=== PATIENT | male | born 1955 | race Caucasian/White ===

== ENCOUNTER 2018-02-26 22:21 | Inpatient (IN) | payer BC, OTHER ==
[~2018-02-26] VITALS: Ht 175.3 cm; Wt 79.4 kg
[2018-02-26 22:55] LABS: Basophils # (auto) 0 uL; Basophils % (auto) 0.2 % (0.0-2.0); Eosinophils # (auto) 0.5 uL; Hematocrit 44.7 % (41.0-53.0); Hemoglobin 15.1 g/dL (13.5-17.5); Lymphocytes # (auto) 1.8 uL; Lymphocytes % (auto) 22.7 % (10.0-50.0); Mean Corpuscular Hgb Conc. 33.7 g/dL (32.0-36.0); Mean Corpuscular Volume 88.9 fL (80.0-100.0); Monocytes # (auto) 0.6 uL; Monocytes % (auto) 7.3 % (0.0-12.0); Neutrophils # (auto) 4.9 uL; Neutrophils % (auto) 62.8 % (37.0-80.0); Platelet Count (auto) 209 10^3/uL (140-450); Red Blood Cells 5.03 10^6/uL (4.5-5.90); Red Cell Distribution Width 13.4 % (11.8-14.3); White Blood Cell 7.8 10^3/uL (4.4-10.8)
[2018-02-26 23:02] LABS: INR 0.98 (0.9-1.15); Partial Thromboplastin Time 28.9 sec (23.78-33.04); Prothrombin Time 10.5 sec (9.27-12.13)
[2018-02-26 23:06] LABS: Albumin 3.6 g/dL (3.4-5.0); BUN/Creatinine Ratio 15.2; Calcium 8.8 mg/dL (8.5-10.1); Magnesium 2.4 mg/dL (1.6-2.6); Potassium 3.8 mmol/L (3.5-5.1)
[2018-02-26 23:11] LABS: Bilirubin, Total 0.9 mg/dL (0.2-1.0); Total Protein 6.8 g/dL (6.4-8.2)
[2018-02-27] MEDS ORDERED: NITROGLYCERIN 0.4 MG SL TAB SL ONE (00:15)
[2018-02-27] MEDS ORDERED: ASPirin 81 mg TAB PO ONE (00:15)
[2018-02-27] MEDS ORDERED: MORPHINE SULFATE 8mg/ml INJ SDV IV PRN ×3 (00:15→05:45)
[2018-02-27] MEDS ORDERED: ONDANSETRON HCL 4 MG/2 ML VIAL IV PRN ×2 (00:15→05:45)
[2018-02-27 00:34] LABS: Urine Bacteria NONE SEEN /hpf (None Seen); Urine Blood Negative /uL (Negative); Urine Specific Gravity 1.008 (1.001-1.035); Urine WBC <1 /hpf (0 - 3)
[2018-02-27 00:50] LABS: Alcohol, Urine < 3.0 mg/dL (0-5); Amphetamine Screen, Urine NEGATIVE (NEGATIVE); Barbiturate Scree,Urine NEGATIVE (NEGATIVE); Benzodiazephine Screen, Urine NEGATIVE (NEGATIVE); Cannabinoid Screen, Urine NEGATIVE (NEGATIVE); Cocaine Screen, Urine NEGATIVE (NEGATIVE); Opiate Scree,Urine NEGATIVE (NEGATIVE); Phencyclidine Screen, Urine NEGATIVE (NEGATIVE)
[2018-02-27] MEDS ORDERED: cloNIDine HCL 0.1 MG TAB PO PRN (05:45)
[2018-02-27] MEDS ORDERED: NITROGLYCERIN 0.4 MG SL TAB SL PRN (05:45)
[2018-02-27] MEDS ORDERED: HYDROcodone-ACET 5/325MG TAB PO PRN (05:45)
[2018-02-27] MEDS ORDERED: ACETAMINOPHEN 325 MG TAB PO PRN (05:45)
[2018-02-27] MEDS ORDERED: TEMAZEPAM 15 MG CAP PO PRN (05:45)
[2018-02-27 08:16] LABS: Cholesterol 169 mg/dL (< 200); HDL Cholesterol 48 mg/dL (40-59); LDL Cholesterol 107 mg/dL (< 100); Triglycerides 105 mg/dL (< 150)
[2018-02-27] MEDS ORDERED: ASPirin 81 mg TAB PO SCH (10:00)
[2018-02-27] MEDS ORDERED: FAMOTIDINE 20 MG TAB PO SCH (10:00)
[2018-02-27] MEDS ORDERED: ENOXAPARIN SOD 40 MG/0.4 ML SYRINGE SC SCH (10:00)
[2018-02-27] MEDS ORDERED: amLODIPine BESYLATE 5 MG TAB PO ONE (15:00)
[2018-02-27 21:51] VITALS: BP 130/70
[2018-02-27] MEDS ORDERED: ATORVASTATIN 20 MG TAB PO SCH (22:00)
[2018-02-28] MEDS ORDERED: amLODIPine BESYLATE 5 MG TAB PO SCH (10:00)
== END 2018-02-27 21:54 | disposition short-term general hospital (02) | DRG 303 ==
LOC: ER 22:21 → EDBD 22:21 → TELE 22:22
PROVIDERS: ADMIT Nurse Practitioner; ATTEND Internal Medicine
DX: I25.10 Atherosclerotic heart disease of native coronary artery without angina pectoris (principal); I24.9 Acute ischemic heart disease, unspecified; G47.00 Insomnia, unspecified; I10 Essential (primary) hypertension; R00.1 Bradycardia, unspecified; Z88.8 Allergy status to other drugs, medicaments and biological substances
CPT/HCPCS: 36415; 71045; 80053; 80061; 80307; 81001; 83735; 83880; 84443; 84484; 85025; 85610; 85730; 93005; 93306; 96372

== ENCOUNTER 2023-08-09 17:23 | Inpatient (IN) | payer OTHER ==
[~2023-08-09] VITALS: Ht 177.8 cm; Wt 80.0 kg
[2023-08-09 18:52] LABS: Basophils # (auto) 0 10 ^3/uL (0-0.2); Basophils % (auto) 0.2 % (0.0-2.0); Eosinophils # (auto) 0.1 10 ^3/uL (0-0.8); Hematocrit 45.6 % (41.0-53.0); Hemoglobin 15.1 g/dL (13.5-17.5); Lymphocytes # (auto) 0.8 10 ^3/uL (0.4-5.4); Lymphocytes % (auto) 6.4 % (10.0-50.0); Mean Corpuscular Hemoglobin 29.5 pg (28.0-32.0); Mean Corpuscular Hgb Conc. 33.1 g/dL (32.0-36.0); Mean Corpuscular Volume 88.9 fL (80.0-100.0); Monocytes # (auto) 0.5 10 ^3/uL (0-1.3); Monocytes % (auto) 3.9 % (0.0-12.0); Neutrophils # (auto) 10.5 10 ^3/uL (1.6-8.6); Neutrophils % (auto) 88.5 % (37.0-80.0); Nucleated Red Blood Cells % 0.1 %; Red Blood Cells 5.13 10^6/uL (4.5-5.90); Red Cell Distribution Width 13.3 % (11.8-14.3); White Blood Cell 11.9 10^3/uL (4.4-10.8)
[2023-08-09] MEDS ORDERED: SODIUM CHLORIDE 0.9% 1,000 ML IV ONE (19:00)
[2023-08-09 19:07] LABS: INR 1.05 (0.9-1.15); Partial Thromboplastin Time 25.6 SEC (24.5-34.5)
[2023-08-09 19:19] LABS: Alanine Aminotransferase 26 U/L (7-40); Albumin 4.5 g/dL (3.2-4.8); Alkaline Phosphatase 65 U/L (46-116); Anion Gap 6 (5-15); Aspartate Aminotransferase 23 U/L (13-40); Bilirubin, Total 1.4 mg/dL (0.2-1.0); Blood Urea Nitrogen 19 mg/dL (9-23); Calcium 9.3 mg/dL (8.7-10.4); Carbon Dioxide 27 mmol/L (20-30); Chloride 105 mmol/L (98-107); Glucose 107 mg/dL (74-106); Lipase 43 U/L (12-53); Potassium 4.6 mmol/L (3.5-5.1); Sodium 138 mmol/L (136-145); Total Protein 6.6 g/dL (5.7-8.2)
[2023-08-09] MEDS ORDERED: ASPirin 325 MG TAB PO ONE (19:45)
[2023-08-09] MEDS ORDERED: ONDANSETRON HCL 4 MG/2 ML VIAL IV ONE (23:00)
[2023-08-09] MEDS ORDERED: MORPHINE SULFATE INJ 2 MG/ml SYRG IV ONE (23:00)
[2023-08-10] MEDS ORDERED: HYDROcodone-ACET 5/325MG TAB PO PRN (01:00)
[2023-08-10] MEDS ORDERED: DOCUSATE SOD 100 MG CAP PO PRN (01:00)
[2023-08-10] MEDS ORDERED: ONDANSETRON HCL 4 MG/2 ML VIAL IV PRN (01:00)
[2023-08-10] MEDS ORDERED: ACETAMINOPHEN 325 MG TAB PO PRN (01:00)
[2023-08-10] MEDS ORDERED: MORPHINE SULFATE INJ 2 MG/ml SYRG IV PRN (01:00)
[2023-08-10] MEDS ORDERED: SODIUM CHLORIDE 0.9% 1,000 ML IV SCH (01:00)
[2023-08-10 01:45] VITALS: PULSE 60; RESP 16; O2SAT 97
[2023-08-10 07:38] LABS: Alanine Aminotransferase 18 U/L (7-40); Albumin 3.5 g/dL (3.2-4.8); Alkaline Phosphatase 51 U/L (46-116); Anion Gap 6 (5-15); Aspartate Aminotransferase 21 U/L (13-40); BUN/Creatinine Ratio 11.7 (10.0-20.0); Bilirubin, Total 1.6 mg/dL (0.2-1.0); Blood Urea Nitrogen 13 mg/dL (9-23); Calcium 7.8 mg/dL (8.5-10.1); Carbon Dioxide 25 mmol/L (20-30); Chloride 108 mmol/L (98-107); Glucose 87 mg/dL (74-106); Potassium 4.6 mmol/L (3.5-5.1); Sodium 139 mmol/L (136-145); Total Protein 5.4 g/dL (5.7-8.2)
[2023-08-10 07:41] LABS: Basophils # (auto) 0 10 ^3/uL (0-0.2); Basophils % (auto) 0.1 % (0.0-2.0); Eosinophils # (auto) 0.1 10 ^3/uL (0-0.8); Eosinophils % (auto) 0.8 % (0.0-7.0); Hemoglobin 14.8 g/dL (13.5-17.5); Lymphocytes # (auto) 0.9 10 ^3/uL (0.4-5.4); Lymphocytes % (auto) 10.3 % (10.0-50.0); Mean Corpuscular Hemoglobin 29.9 pg (28.0-32.0); Mean Corpuscular Hgb Conc. 33.6 g/dL (32.0-36.0); Mean Corpuscular Volume 89.2 fL (80.0-100.0); Monocytes # (auto) 0.9 10 ^3/uL (0-1.3); Monocytes % (auto) 10.2 % (0.0-12.0); Neutrophils % (auto) 78.6 % (37.0-80.0); Red Blood Cells 4.93 10^6/uL (4.5-5.90); Red Cell Distribution Width 13.3 % (11.8-14.3)
[2023-08-10] MEDS ORDERED: MANNITOL FTV 25% 12.5 GM/50 ML 50 ML IV ONE (13:00)
[2023-08-10] MEDS ORDERED: TAMSULOSIN HYDROCHLORIDE 0.4 MG CAP PO ONE (13:00)
[2023-08-10] MEDS: ASPirin 81 mg TAB PO SCH (15:54)
[2023-08-10 16:28] VITALS: PULSE 53; RESP 16; O2SAT 97
[2023-08-10 17:18] VITALS: BP 154/89; PULSE 54; RESP 16; TEMP 99.2; O2SAT 97
[2023-08-10] MEDS: TAMSULOSIN HYDROCHLORIDE 0.4 MG CAP PO SCH (18:20)
[2023-08-10 20:00] VITALS: PULSE 57; PULSE 65; RESP 18
[2023-08-10] MEDS: SODIUM CHLORIDE 0.9% 1,000 ML IV SCH ×2 (20:18→21:30)
[2023-08-10 22:21] VITALS: BP 145/78; PULSE 65; RESP 17; TEMP 99.7; O2SAT 95
[2023-08-11] MEDS: SODIUM CHLORIDE 0.9% 1,000 ML IV SCH (05:34)
[2023-08-11 05:37] VITALS: BP 135/79; PULSE 60; RESP 18; TEMP 98.7; O2SAT 97
[2023-08-11 06:39] LABS: Basophils # (auto) 0 10 ^3/uL (0-0.2); Basophils % (auto) 0.2 % (0.0-2.0); Eosinophils # (auto) 0.2 10 ^3/uL (0-0.8); Hematocrit 42.3 % (41.0-53.0); Hemoglobin 14.4 g/dL (13.5-17.5); Lymphocytes # (auto) 1.1 10 ^3/uL (0.4-5.4); Lymphocytes % (auto) 14.7 % (10.0-50.0); Mean Corpuscular Hemoglobin 30.4 pg (28.0-32.0); Mean Corpuscular Volume 89.2 fL (80.0-100.0); Monocytes # (auto) 0.8 10 ^3/uL (0-1.3); Monocytes % (auto) 10.3 % (0.0-12.0); Neutrophils # (auto) 5.4 10 ^3/uL (1.6-8.6); Neutrophils % (auto) 71.8 % (37.0-80.0); Red Blood Cells 4.74 10^6/uL (4.5-5.90); Red Cell Distribution Width 13.3 % (11.8-14.3); White Blood Cell 7.5 10^3/uL (4.4-10.8)
[2023-08-11 07:12] LABS: Alanine Aminotransferase 15 U/L (7-40); Anion Gap 8 (5-15); Carbon Dioxide 24 mmol/L (20-30); Chloride 107 mmol/L (98-107); Potassium 4.4 mmol/L (3.5-5.1); Sodium 139 mmol/L (136-145)
[2023-08-11 07:13] LABS: Glucose 75 mg/dL (74-106)
[2023-08-11 07:14] LABS: BUN/Creatinine Ratio 12.6 (10.0-20.0); Blood Urea Nitrogen 13 mg/dL (9-23)
[2023-08-11 07:15] LABS: Aspartate Aminotransferase 16 U/L (13-40)
[2023-08-11 07:16] LABS: Bilirubin, Total 2.1 mg/dL (0.2-1.0); Total Protein 4.6 g/dL (5.7-8.2)
[2023-08-11 08:01] VITALS: BP 131/76; PULSE 59; PULSE 81; RESP 16; TEMP 98.5; O2SAT 97
[2023-08-11 08:43] VITALS: BP 131/76; PULSE 59; RESP 16; TEMP 98.5; O2SAT 97
[2023-08-11 09:31] LABS: Alkaline Phosphatase 57 U/L (46-116)
[2023-08-11] MEDS: ASPirin 81 mg TAB PO SCH (10:51)
[2023-08-11 12:55] VITALS: BP 148/77; PULSE 54; RESP 17; TEMP 98.4; O2SAT 97
[2023-08-11] MEDS ORDERED: TAMS-35 PO (15:22)
[2023-08-11 17:00] VITALS: BP 139/59; PULSE 56; RESP 17; TEMP 98.4; O2SAT 97
[2023-08-11] MEDS: TAMSULOSIN HYDROCHLORIDE 0.4 MG CAP PO SCH (17:06)
[2023-08-13 10:11] LABS: Hepatitis B Surface Antigen Negative (Negative)
[2023-08-13 10:32] LABS: Hepatitis C Antibody Negative (Negative)
== END 2023-08-11 18:05 | disposition home or self-care (01) | DRG 693 ==
LOC: EDBD 17:23 → ER 17:23 → OVERFLOW 08-10 00:55 → TELE 08-10 09:39 → TELE-EAST 08-10 16:45
PROVIDERS: ADMIT Nurse Practitioner Family; ATTEND Internal Medicine
DX: N20.2 Calculus of kidney with calculus of ureter (principal); I21.A1 Myocardial infarction type 2; N13.9 Obstructive and reflux uropathy, unspecified; I10 Essential (primary) hypertension; N50.819 Testicular pain, unspecified; D72.829 Elevated white blood cell count, unspecified; I16.0 Hypertensive urgency; R00.1 Bradycardia, unspecified
CPT/HCPCS: 36415; 74176; 76870; 80053; 83690; 83880; 84484; 85025; 85610; 85730; 86803; 87340; 93306; G0378; J2405